=== PATIENT | female | born 1965 | race Two or more races ===

== ENCOUNTER → 2017-04-07 13:37 | Day surgery (SDC) | payer BC ==
[~2017-04-07 13:37] MED LIST: Acetaminophen TAB* 325 MG PO PRN; Buffered Lidocaine 0.9% SYRIN* 5 ML/SYR SYRINGE INTRADERM ONE; Cyclopentolate 1% OPTH.SOL* 2 ML BTL ONE; Ketorolac 0.5% OPHTH (NF) 0.5 % 5 ML BTL ONE; Lidocaine 1% MPF* 2 ML VIAL ONE; Midazolam* 1 MG/ML 2 ML VIAL (2 MG) ONE; Neomycin/Polymy/Dex OPHTH.OIN* 3.5 GM ONE; Phenylephrine 2.5% OPTH.SOL* 2 ML BTL ONE; Tetracaine 0.5% OPTH.SOL 4 ML* 1 DROP BTL ONE; Tropicamide 1% OPTH.SOL* BTL ONE; fentaNYL* 50 MCG/ML 2 ML VIAL (100 MCG VIAL) ONE
[2017-04-07 15:03] VITALS: BP 106/80
--- NOTE | 2017-04-08 02:11 | OP ---
DATE OF OPERATION: 04/07/17 [facility] DATE OF : 67 SURGEON: Dr. Hamilton Elizabeth DATABASE MANAGEMENT SPECIALIST: None. ANESTHESIOLOGIST: Ching Kyle MD ANESTHESIA: Topical with intravenous sedation. PRE-OP DIAGNOSIS: Cataract, right eye. POST-OP DIAGNOSIS: Cataract, right eye. OPERATIVE PROCEDURE: Phacoemulsification and cataract extraction with posterior chamber intraocular lens implant, right eye. COMPLICATIONS: None. BLOOD LOSS: None. DESCRIPTION OF PROCEDURE: The patient was brought to the operating room and received a small amount of intra-venous sedation. A drop of Tetracaine was placed in right eye. Right eye was prepped and draped in the usual sterile fashion for ophthalmic surgery and attention was directed to the right eye where a speculum was placed. A paracentesis was created at the 11 o'clock position and 0.1 cc of 1 percent preservative-free Lidocaine was injected into the anterior chamber followed by DisCoVisc. The eye was digitally stabilized while a 2.75 mm keratome was used to create a triplanar clear corneal incision at the 9 o'clock position. A continuous curvilinear capsulorrhexis was created with a cystotome and Utrata forceps. BSS on a cannula was used to hydrodissect the lens from the capsule. Phacoemulsification was performed in a divide-and- conquer technique to create four fragments which were removed. Residual cortical material was removed with irrigation and aspiration. DisCoVisc was used to inflate the capsular bag and an SN60AT AUOOTO 16.0 Diopter lens was folded and inserted into the capsular bag. DisCoVisc was removed using irrigation and aspiration. BSS on a cannula was used to hydrate the corneal stroma and seal the wound. At the end of the case the pupil was round and the lens was centered. The eye was of normal pressure and the wound was water tight. The speculum was removed and topical Maxitrol ointment was placed on the surface of the eye. The eye was closed, patched and shielded and the patient was sent to the recovery room in stable condition with post operative instructions and follow-up appointment given. [id number]/CPS #: [id number] [facility]
== END | disposition home or self-care (01) ==
LOC: OREAST 13:37
PROVIDERS: ATTEND Ophthalmology
DX: H25.11 Age-related nuclear cataract, right eye (principal); Z85.3 Personal history of malignant neoplasm of breast; D50.9 Iron deficiency anemia, unspecified; M85.89 Other specified disorders of bone density and structure, multiple sites
CPT/HCPCS: A9270-GY; J2250; J3010

== ENCOUNTER 2017-04-14 10:05 | Day surgery (SDC) | payer BC ==
[~2017-04-14 10:05] MED LIST changes: -Acetaminophen TAB* 325 MG PO PRN; -Buffered Lidocaine 0.9% SYRIN* 5 ML/SYR SYRINGE INTRADERM ONE; -Midazolam* 1 MG/ML 2 ML VIAL (2 MG) ONE; -fentaNYL* 50 MCG/ML 2 ML VIAL (100 MCG VIAL) ONE
[2017-04-14] MEDS ORDERED: fentaNYL* 50 MCG/ML 2 ML VIAL (100 MCG VIAL) ONE (10:42)
[2017-04-14] MEDS ORDERED: Midazolam* 1 MG/ML 2 ML VIAL (2 MG) ONE ×2 (10:42→11:12)
[2017-04-14 11:57] VITALS: BP 94/69
--- NOTE | 2017-04-15 00:37 | OP ---
DATE OF OPERATION: 04/14/17 [facility] DATE OF : 67 SURGEON: Dr. Hamilton Elizabeth. ROCK CUTTER: None. ANESTHESIOLOGIST: ANESTHESIA: Topical with intravenous sedation. PRE-OP DIAGNOSIS: Cataract, left eye. POST-OP DIAGNOSIS: Cataract, left eye. OPERATIVE PROCEDURE: Phacoemulsification and cataract extraction with posterior chamber intraocular lens implant, left eye. COMPLICATIONS: None. BLOOD LOSS: None. DESCRIPTION OF PROCEDURE: The patient was brought to the operating room and received a small amount of intravenous sedation. A drop of Tetracaine was placed in her left eye. She was prepped and draped in the usual sterile fashion for ophthalmic surgery and attention was directed to the left eye where a speculum was placed. A paracentesis was created at the 5 o'clock position and 0.1 cc of 1 percent preservative-free Lidocaine was injected into the anterior chamber followed by DisCoVisc. The eye was digitally stabilized while a 2.75 mm keratome was used to create a triplanar clear corneal incision at the 3 o'clock position. A continuous curvilinear capsulorrhexis was created with a cystotome and Utrata forceps. BSS on a cannula was used to hydrodissect the lens from the capsule. Phacoemulsification was performed in a divide-and- conquer technique to create four fragments which were removed. Residual cortical material was removed with irrigation and aspiration. DisCoVisc was used to inflate the capsular bag and an AU00T0 14.5 diopter lens was folded and inserted into the capsular bag. DisCoVisc was removed using irrigation and aspiration. BSS on a cannula was used to hydrate the corneal stroma and seal the wound. At the end of the case the pupil was round and the lens was centered. The eye was of normal pressure and the wound was water tight. The speculum was removed and topical Maxitrol ointment was placed on the surface of the eye. The eye was closed, patched and shielded and the patient was sent to the recovery room in stable condition with post operative instructions and follow-up appointment given. [id number]/CPS #: [id number] MTD[facility]berto
== END 2017-04-14 12:01 | disposition home or self-care (01) ==
LOC: OREAST 10:05
PROVIDERS: ATTEND Ophthalmology
DX: H25.012 Cortical age-related cataract, left eye (principal); H25.042 Posterior subcapsular polar age-related cataract, left eye; C50.912 Malignant neoplasm of unspecified site of left female breast; D50.9 Iron deficiency anemia, unspecified; M85.89 Other specified disorders of bone density and structure, multiple sites
CPT/HCPCS: A9270-GY; J2250; J3010; V2632

== ENCOUNTER 2018-02-03 18:22 | Emergency (ER) | payer BC ==
[2018-02-03] MEDS ORDERED: Naloxone* 0.4 MG/ML 1 ML VIAL IV PUSH ONE (19:47)
[2018-02-03 19:48] LABS: Hematocrit 34 % (35-47); Hemoglobin 11.5 g/dl (12.0-16.0); Mean Corpuscular HGB Conc 34 g/dl (31-36); Mean Corpuscular Hemoglobin 27 pg (27-31); Mean Corpuscular Volume 81 fL (80-97); Mean Platelet Volume 7.8 um3 (7.4-10.4); Platelet Count 229 10^3/ul (150-450); Red Cell Distribution Width 14 % (10.5-15); White Blood Count 6.2 10^3/ul (3.5-10.8)
--- NOTE | 2018-02-03 19:53 | UC ---
Syncope/New Syncope HPI - History Of Current Complaint Chief Complaint: EDChestPainROMI Stated Complaint: CHEST PAIN Time Seen by Provider: 02/03/18 19:24 Pain Intensity: 0 - Allergies/Home Medications Allergies/Adverse Reactions: Allergies Allergy/AdvReac Type Severity Reaction Status Date / Time No Known Allergies Allergy Verified 04/14/17 10:16 PMH/Surg Hx/FS Hx/Imm Hx - Surgical History Surgical History: Yes Surgery Procedure, Year, and Place: LEFT BREAST SURGERY 2009 PARTIAL MASTECTOMY- [facility] - Social History Alcohol Use: None Substance Use Type: None Smoking Status (MU): Never Smoked Tobacco Have You Smoked in the Last Year: No Physical Exam Vital Signs: Initial Vital Signs Temp 99.5 F 02/03/18 18:32 Pulse 65 02/03/18 18:32 Resp 26 02/03/18 18:32 BP 139/91 02/03/18 18:32 Pulse Ox 100 02/03/18 18:32 Discharge - Discharge Plan Referrals: Angela Brady MD [Primary Care Provider] - - Attestation Statements Document Initiated by Scribe: Yes
--- NOTE | 2018-02-03 19:55 | ED ---
HPI Chest Pain - HPI Summary HPI Summary: Level 5 caveat: Unable to obtain complete HPI due to AMS The pt is a 52 y/o female BIBA to [facility] c/o L sided CP s/p a witnessed syncopal episode at 16:30. Her son said that the pt was praying then fell down clasping her L chest. She notes chest tightness, SOB, dyspnea, and CARTER but denies medication overdose. She reports taking only 2 vitamin D pillls. The pt reports a PMHx of L breast cancer 5 years ago followed by a mastectomy by Dr. Mary Vargas MD, She follows up with Dr Yun- oncologist every 6 months. - History of Current Complaint Chief Complaint: EDChestPainROMI Time Seen by Provider: 02/03/18 19:24 Hx Obtained From: Patient, Family/Product Development - Hx From Patient Unobtainable Due To: Altered Mental Status Onset/Duration: Started Hours Ago - At 16:3o hrs today, Still Present Timing: Constant Current Severity: None Pain Intensity: 0 Pain Scale Used: 0-10 Numeric Chest Pain Location: Discrete at: - L side Character: Pressure/Squeezing Alleviating Factor(s): Nothing Associated Signs and Symptoms: Positive: Chest Pain, Headaches, Shortness of Breath, Syncope, Other: - Additional Pertinent History Primary Care Physician: [id number] - Allergy/Home Medications Allergies/Adverse Reactions: Allergies Allergy/AdvReac Type Severity Reaction Status Date / Time No Known Allergies Allergy Verified 04/14/17 10:16 PMH/Surg Hx/FS Hx/Imm Hx Previously Healthy: No - Breast CA- In remission for 5 years Endocrine/Hematology History: Denies: Hx Diabetes Cardiovascular History: Denies: Hx Hypertension, Hx Myocardial Infarction, Hx Pacemaker/ICD History: Denies: Hx Renal Disease Musculoskeletal History: Denies: Hx Osteoporosis Sensory History: Reports: Hx Contacts or Glasses - GLASSES Denies: Hx Hearing Aid Opthamlomology History: Reports: Hx Contacts or Glasses - GLASSES Psychiatric History: Denies: Hx Panic Disorder - Cancer History Cancer Type, Location and Year: L mastectomy Hx Chemotherapy: No Hx Radiation Therapy: No - Surgical History Surgery Procedure, Year, and Place: LEFT BREAST SURGERY 2009 PARTIAL MASTECTOMY- [facility] Hx Anesthesia Reactions: No Infectious Disease History: No Infectious Disease History: Denies: Traveled Outside the [place] in Last 30 Days - Family History Known Family History: Negative: Cardiac Disease - Social History Occupation: Unemployed Lives: With Family Alcohol Use: None Substance Use Type: Reports: None Smoking Status (MU): Never Smoked Tobacco Have You Smoked in the Last Year: No - Additional Comments History Additional Comments: Level 5 caveat: Unable to obtain complete PMhx due to AMS Review of Systems - ROS Summary Review of Systems Summary: Level 5 caveat: Unable to obtain complete ROS due to AMS Constitutional: Negative - Medication overdose Positive: Chest Pain - L sided Positive: Shortness Of Breath, Other - Positive: Dyspnea Positive: Headache, Syncope - 1 episode All Other Systems Reviewed And Are Negative: Yes Physical Exam - Summary Physical Exam Summary: Level 5 caveat: Unable to obtain complete PE due to AMS Constitutional: Well-developed, Well-nourished, Alert. (-) Distressed Skin: Warm, Dry HENT: Normocephalic; Atraumatic Eyes: Pinpoint pupils, Conjunctiva normal Neck: Musculoskeletal ROM normal neck. (-) JVD, (-) Stridor, (-) Tracheal deviation Cardio: Rhythm regular, rate normal, Heart sounds normal; Intact distal pulses; The pedal pulses are 2+ and symmetric. Radial pulses are 2+ and symmetric. (-) Murmur Pulmonary/Chest wall: Effort normal. (-) Respiratory distress, (-) Wheezes, (-) Rales Abd: Soft, (-) epigastric tenderness, (-) Distension, (-) Guarding, (-) Rebound Musculoskeletal: (-) Edema Lymph: (-) Cervical adenopathy Neuro: Alert, Oriented x3 Psych: Mood and affect Normal GCS: 15 Triage Information Reviewed: Yes Vital Signs On Initial Exam: Initial Vitals Temp Pulse Resp BP Pulse Ox 99.5 F 65 26 139/91 100 02/03/18 18:32 02/03/18 18:32 02/03/18 18:32 02/03/18 18:32 02/03/18 18:32 Vital Signs Reviewed: Yes Diagnostics - Vital Signs Vital Signs Temp Pulse Resp BP Pulse Ox 02/03/18 18:35 74 17 98 02/03/18 18:32 99.5 F 65 26 139/91 100 - Laboratory Lab Results: Lab Results 02/03/18 Range/Units 19:39 WBC 6.2 (3.5-10.8) 10^3/ul RBC 4.20 (4.00-5.40) 10^6/ul Hgb 11.5 L (12.0-16.0) g/dl Hct 34 L (35-47) % MCV 81 (80-97) fL MCH 27 (27-31) pg MCHC 34 (31-36) g/dl RDW 14 (10.5-15) % Plt Count 229 (150-450) 10^3/ul MPV 7.8 (7.4-10.4) um3 Result Diagrams: 02/03/18 19:39 02/03/18 19:39 Lab Statement: Any lab studies that have been ordered have been reviewed, and results considered in the medical decision making process. - Radiology CXR Radiology Interpretation Completed By: ED Physician - IMPRESSION:Refer to the Chest CT Pendinf official report - CT Brain CT CT Interpretation Completed By: Radiologist - IMPRESSION: No acute intracranial abnormality. The ED physician reviewed this radiology report. Chest/Thorax CTA CT Interpretation Completed By: Radiologist - IMPRESSION: 1. No pulmonary emboli. 2. Ascending aortic ectasia. 3. Left anterior chest wall postsurgical seroma post mastectomy. The ED physician reviewed this radiology report. - EKG 18:59 Cardiac Rate: NL - 67 bpm EKG Rhythm: Sinus Rhythm EKG Interpretation: No STEMI Re-Evaluation - Re-Evaluation First Eval Re-Evaluation Time: 21:17 Change: Unchanged Second Eval Re-Evaluation Time: 21:41 Change: Improved - The pt reports that she takes Tamoxifen for pain. Chest Pain Course/Dx - Course Course Of Treatment: A 52 year-old F presents to the ED with a CC of L sided CP s/p a witnessed syncopal episode at 16:30. Her son said that the pt was praying then fell down clasping her L chest. She notes chest tightness, SOB, dyspnea, and CARTER but denies medication overdose. She reports taking only 2 vitamin D pills. A physical exam revealed pinpoint pupils. A CXR reveals seroma. An EKG is unremarkable. A brain CT and Chest/Thorax CTA are oth unremarkable. In the ED course, pt was given Ammonia inhalant INH once, Iodixanol (contrast) 69 ml and Naloxone 2mg IV which improved the symptoms. I discussed the care of the pt with Honey Thomas who agreed to admit the pt. Patient will beadmited with a final Dx of seroma, L side CP, Syncope and AMS. The pt is agreeable with this plan. Allergies noted. - Diagnoses Provider Diagnoses: Seroma after procedure, Left sided chest pain, Altered mental status, Syncope - Provider Notifications Discussed Care Of Patient With: Honey Buck Time Discussed With Above Provider: 21:50 Instructed by Provider To: Admit As Inpatient Discharge - Sign-Out/Discharge Documenting (check all that apply): Patient Departure - Admit - Discharge Plan Condition: Stable Disposition: ADMITTED TO [facility] Patient Education Materials: Chest Pain (ED), Syncope (ED), Altered Mental Status (ED), Seroma (DC) Referrals: Angela Brady MD [Primary Care Provider] - 2 Days Additional Instructions: RETURN TO THE EMERGENCY DEPARTMENT FOR CHANGING OR WORSENING SYMPTOMS - Attestation Statements Document Initiated by Scribe: Yes Documenting Scribe: Dipti Taylor Provider For Whom Scribe is Documenting (Include Credential): Dr. Shawn Correia MD Scribe Attestation: Dipti Camara, scribed for Dr. Shawn Correia MD on 02/03/18 at 2254.
[2018-02-03 19:57] LABS: INR 0.87 (0.77-1.02)
[2018-02-03 20:04] LABS: EGFR Non-African American 44.8 (>60)
[2018-02-03] MEDS ORDERED: Naloxone* 0.4 MG/ML 10 ML VIAL ONE (20:04)
[2018-02-03] MEDS ORDERED: Ammonia Inhalant* 1 EA AMP INH ONE (20:19)
[2018-02-03] MEDS ORDERED: Iodixanol* (CONTRAST) 320 MG/ML 100 ML SDV IV ONE (20:27)
--- NOTE | 2018-02-03 20:40 | RAD ---
EXAM: CT Head Without Intravenous Contrast EXAM DATE/TIME: 02/03/2018 8:24 PM CLINICAL HISTORY: 52 years old, female; Signs and symptoms; Syncope and collapse; Additional info: AMS TECHNIQUE: Axial computed tomography images of the head/brain without intravenous contrast. All CT scans at this facility use at least one of these dose optimization techniques: automated exposure control; mA and/or kV adjustment per patient size (includes targeted exams where dose is matched to clinical indication); or iterative reconstruction. COMPARISON: No relevant prior studies available. FINDINGS: Brain: No acute ischemic changes, extra axial fluid collections, intraparenchymal hemorrhage, or midline shift. Ventricles: Normal. No ventriculomegaly. Bones/joints: Normal. No acute fracture. Sinuses: Normal as visualized. No acute sinusitis. Mastoid air cells: Normal as visualized. No mastoid effusion. Orbits: There have been bilateral lens replacements. Soft tissues: Normal. IMPRESSION: No acute intracranial abnormality. To contact [facility] with a general question: [facility] - [phone] For direct physician to physician contact: Physician Hotline - [phone] [facility] ([facility] Facility ID #[id number])
--- NOTE | 2018-02-03 21:01 | RAD ---
EXAM: CT Angiography Chest With Intravenous Contrast EXAM DATE/TIME: 02/03/2018 8:29 PM CLINICAL HISTORY: 52 years old, female; Signs and symptoms; Shortness of breath; Additional info: Sob/syncope/cp, R/O pe TECHNIQUE: Axial computed tomographic angiography images of the chest with intravenous contrast using CT angiography protocol. All CT scans at this facility use at least one of these dose optimization techniques: automated exposure control; mA and/or kV adjustment per patient size (includes targeted exams where dose is matched to clinical indication); or iterative reconstruction. Coronal and sagittal reformatted images were created and reviewed. MIP reconstructed images were created and reviewed. CONTRAST: 69 ml of VISIPAQUE 320 administered intravenously. COMPARISON: CHESTSI G CT FOR SIM-CHEST GATING 04/03/2016 2:03 PM FINDINGS: Pulmonary arteries: Pulmonary arteries are well opacified to the subsegmental branches. Normal caliber main pulmonary artery. No filling defects throughout the pulmonary artery tree. Aorta: Fusiform ectasia of the ascending aorta measuring 4.2 cm. No dissection or evidence of rupture. Remaining aorta is normal. Lungs: No pulmonary nodules, masses, or consolidations. No bronchiectasis, peribronchial thickening, or luminal defects. Pleural space: Normal. No pneumothorax. No pleural effusion. Heart: Normal. No cardiomegaly. No pericardial effusion. Thyroid: No thyroid nodules. Bones/joints: No fractures. No suspicious bone lesions. Soft tissues: Findings left mastectomy. Small fluid collection along the left anterior chest wall overlying the ribs measuring 7.9 x 1.1 cm (series 2, image 70) which is not seen on the prior PET/CT. No adjacent stranding. Lymph nodes: Normal. No enlarged lymph nodes. IMPRESSION: 1. No pulmonary emboli. 2. Ascending aortic ectasia. 3. Left anterior chest wall postsurgical seroma post mastectomy. To contact [facility] with a general question: Operations Center - [phone] For direct physician to physician contact: Physician Hotline - [phone] [facility] ([facility] Facility ID #[id number])
[2018-02-03] MEDS ORDERED: Aspirin 81 mg CHEW TAB* 81 MG TAB.CHEW PO ONE (22:06)
[2018-02-03 22:10] LABS: Urine Appearance Clear; Urine Blood Negative (Negative); Urine Color Straw; Urine Ketones Negative (Negative); Urine Protein Negative (Negative); Urine Specific Gravity 1.009 (1.010-1.030); Urine Urobilinogen Negative (Negative)
[2018-02-03] MEDS ORDERED: NS 0.9% 1000 ML* 1,000 ML IV SCH (23:00)
--- NOTE | 2018-02-03 23:10 | ADMNOTE ---
Review of Systems - Measurements Intake and Output: Intake and Output Last 24 Hours 02/01/18 02/02/18 02/03/18 02/04/18 06:59 06:59 06:59 06:59 Weight 150 lb Objective Active Medications: Sodium Chloride (Ns 0.9% 1000 Ml*) 1,000 mls @ 100 mls/hr IV PER RATE LORETTA Tamoxifen Citrate (Nolvadex*) 20 mg PO QPM [facility] Vital Signs - 8 hr 02/03/18 02/03/18 18:32 18:35 Temperature 99.5 F Pulse Rate 65 74 Respiratory 26 17 Rate Blood Pressure 139/91 (mmHg) O2 Sat by Pulse 100 98 Oximetry Result Diagrams: 02/03/18 19:39 02/03/18 19:39 Additional Lab and Data: Lab Results 02/03/18 Range/Units 19:39 WBC 6.2 (3.5-10.8) 10^3/ul RBC 4.20 (4.00-5.40) 10^6/ul Hgb 11.5 L (12.0-16.0) g/dl Hct 34 L (35-47) % MCV 81 (80-97) fL MCH 27 (27-31) pg MCHC 34 (31-36) g/dl RDW 14 (10.5-15) % Plt Count 229 (150-450) 10^3/ul MPV 7.8 (7.4-10.4) um3 Assess/Plan/Problems-Billing Assessment:
--- NOTE | 2018-02-03 23:42 | PN ---
Progress Note - Progress Note Date of Service: 02/03/18 Note: Patient initially agreed to admission but when dr gutierrez went to see patient they refused admission. Went into discuss with patient the risks and benefits of admission. Patient understands the risk of not being admitted. Patient is present with the who also understands the risks. Patient and agree that do not want to be admitted. Discussed the risks of and disability due to symptoms of syncope and chest pain. Patient is alert and oriented 3. Patient is fully able to make medical decisions at this time.
[2018-02-04 02:25] VITALS: BP 120/86
--- NOTE | 2018-02-04 07:54 | RAD ---
HISTORY: CP COMPARISONS: December 07, 2015 VIEWS: 1: frontal AP view of the chest at 7:42 PM FINDINGS: LINES AND TUBES: None. CARDIOMEDIASTINAL SILHOUETTE: The cardiomediastinal silhouette is normal for portable technique. PLEURA: The costophrenic angles are sharp. No pleural abnormalities are noted. LUNG PARENCHYMA: The lungs are clear. ABDOMEN: The upper abdomen is clear. There is no subphrenic gas. BONES AND SOFT TISSUES: No bone or soft tissue abnormalities are noted. IMPRESSION: NO ACTIVE CARDIOPULMONARY DISEASE. R0
[2018-02-04] MEDS ORDERED: Tamoxifen TAB* 10 MG PO SCH (18:00)
== END 2018-02-04 02:28 | disposition short-term general hospital (02) ==
LOC: ED 18:22 → MEDTELE 22:47 → UNDOADMOB 22:47 → ED 02-04 02:28
DX: L76.34 Postprocedural seroma of skin and subcutaneous tissue following other procedure (principal); R07.9 Chest pain, unspecified; R51 Headache; R06.02 Shortness of breath; R55 Syncope and collapse; Z85.3 Personal history of malignant neoplasm of breast; R41.82 Altered mental status, unspecified; Z90.12 Acquired absence of left breast and nipple
CPT/HCPCS: 36415; 70450; 71045; 71275; 80053; 80307; 80320; 81003; 82140; 84484; 85027; 85610; 85730; 93005; 96374; 99282; A9270-GY; G0480; J2310; Q9967

== ENCOUNTER 2020-10-15 16:35 | Observation (INO) ==
[2020-10-15 17:09] LABS: ABS Eosinophils 0.1 10^3/ul (0-0.6); ABS Lymphocytes 1.8 10^3/ul (1.0-4.8); ABS Monocytes 0.3 10^3/ul (0-0.8); ABS Neutrophils 3.8 10^3/ul (1.5-7.7); Eosinophil % 1.5 %; Hematocrit 36 % (35-47); Hemoglobin 11.8 g/dL (12.0-16.0); Lymphocyte % 29.5 %; Mean Corpuscular HGB Conc 33 g/dL (31-36); Mean Corpuscular Hemoglobin 27 pg (27-31); Mean Corpuscular Volume 83 fL (80-97); Mean Platelet Volume 8.1 fL (7.4-10.4); Platelet Count 246 10^3/uL (150-450); Red Blood Count 4.37 10^6 /uL (3.70-4.87); Red Cell Distribution Width 14 % (10-15)
[2020-10-15 17:40] LABS: ALT 29 U/L (7-52); AST 22 U/L (13-39); Albumin 4.5 g/dL (3.2-5.2); Albumin/Globulin Ratio 1.5 (1-3); Alkaline Phosphatase 108 U/L (35-149); Anion Gap 8 mmol/L (2-11); Blood Urea Nitrogen 16 mg/dL (6-24); CO2 Carbon Dioxide 25 mmol/L (22-32); Calcium 9.6 mg/dL (8.6-10.3); Chloride 104 mmol/L (101-111); EGFR African American 99.3 (>60); EGFR Non-African American 82.1 (>60); Globulin 3.1 g/dL (2-4); Glucose 123 mg/dL (70-100); Potassium 3.6 mmol/L (3.5-5.0); Sodium 137 mmol/L (135-145); Total Protein 7.6 g/dL (6.4-8.9)
[2020-10-15 17:47] LABS: Troponin I 0.03 ng/mL (<0.03)
[2020-10-15 20:34] LABS: INR 0.98 (0.82-1.09)
[2020-10-15 20:35] LABS: Troponin I 0.03 ng/mL (<0.03)
[2020-10-15] MEDS ORDERED: Ondansetron 4 mg VIAL 2 MG/ML 2 ml VIAL IV PRN (21:34)
[2020-10-15] MEDS ORDERED: Enoxaparin 40 MG/0.4 ML SYR SUBCUT SCH (22:00)
[2020-10-15] MEDS ORDERED: NS 0.9% 1000 ml BAG 1,000 ML IV SCH (22:15)
[2020-10-16 06:41] LABS: Calcium 8.9 mg/dL (8.6-10.3); EGFR African American 109.5 (>60); EGFR Non-African American 90.5 (>60); HDL Cholesterol 49.2 mg/dL; Potassium 3.9 mmol/L (3.5-5.0)
[2020-10-16 06:42] LABS: ABS Eosinophils 0.1 10^3/ul (0-0.6); ABS Lymphocytes 1.8 10^3/ul (1.0-4.8); ABS Monocytes 0.3 10^3/ul (0-0.8); ABS Neutrophils 2.7 10^3/ul (1.5-7.7); Eosinophil % 1.9 %; Hematocrit 34 % (35-47); Lymphocyte % 37.1 %; Mean Corpuscular HGB Conc 33 g/dL (31-36); Mean Corpuscular Hemoglobin 28 pg (27-31); Mean Corpuscular Volume 84 fL (80-97); Mean Platelet Volume 8.4 fL (7.4-10.4); Nucleated Red Blood Cells % 0.1; Platelet Count 208 10^3/uL (150-450); Red Blood Count 3.97 10^6 /uL (3.70-4.87); Red Cell Distribution Width 14 % (10-15); White Blood Count 4.9 10^3/uL (3.5-10.8)
[2020-10-16 12:11] VITALS: BP 116/79
== END 2020-10-16 14:07 | disposition home or self-care (01) ==
LOC: MEDTELE 16:35 → ED 16:35 → MEDTELE 23:26
PROVIDERS: ADMIT Student in an Organized Health Care Education/Training Program; ATTEND Internal Medicine